=== PATIENT | male | born 1965 ===

== ENCOUNTER 2021-06-25 06:00 | Day surgery (SDC) | payer OTHER ==
[~2021-06-25 06:00] MED LIST: COZAAR50 MG PO
== END 2021-06-25 14:35 | disposition home or self-care (01) ==
LOC: CIR.AMB 06:00
PROVIDERS: ATTEND Specialist
DX: L72.0 Epidermal cyst (principal); I10 Essential (primary) hypertension; Z20.822 Contact with and (suspected) exposure to COVID-19; Z88.8 Allergy status to other drugs, medicaments and biological substances; F32.A Depression, unspecified